=== PATIENT | female | born 1995 | race American Indian/Alaskan Native ===

== ENCOUNTER 2017-03-03 00:27 | Emergency (ER) | payer SELFPAY ==
[2017-03-03 01:14] LABS: Bacteria,Urine 1+ /HPF (Negative); Bilirubin,Urine NEG (Negative); Blood,Urine NEG (Negative); Ketones,Urine NEG (Negative); Leukocyte Esterase,Urine TR (Negative); Mucus,Urine FEW /HPF; Nitrite,Urine NEG (Negative); Protein,Urine <15 mg/dL mg/dL (Negative); Urobilinogen,Urine < 2.0 mg/dL (<2.0)
[2017-03-03 01:15] LABS: Basophils % (Auto) 0.3 % (0.0-1.8); Eosinophils % (Auto) 2.1 % (0.0-4.3); Hematocrit 39.1 % (30.3-42.9); Hemoglobin 12.5 gm/dl (10.1-14.3); Mean Corpuscular HGB Conc 32 % (30-34); Mean Corpuscular Volume 70 fl (79-97); Platelet Count 245 K/mm3 (140-440); Red Blood Count 5.58 M/mm3 (3.65-5.03); Red Cell Distribution Width 13.7 % (13.2-15.2); White Blood Count 8.1 K/mm3 (4.5-11.0)
[2017-03-03 01:16] LABS: Mean Corpuscular Hemoglobin 22 pg (28-32)
[2017-03-03 01:34] LABS: Alanine Aminotransferase 16 units/L (7-56); Albumin/Globulin Ratio 1.1 %; Alkaline Phosphatase 131 units/L (35-129); Anion Gap 19 mmol/L; BUN/Creatinine Ratio 21.66; Blood Urea Nitrogen 13 mg/dL (7-17); Calcium 9.2 mg/dL (8.4-10.2); Carbon Dioxide 22 mmol/L (22-30); Chloride 101.2 mmol/L (98-107); Glucose 84 mg/dL (65-100); Lipase 20 units/L (13-60); Potassium 4.1 mmol/L (3.6-5.0); Sodium 138 mmol/L (137-145); Total Protein 7.6 g/dL (6.3-8.2)
[2017-03-03 02:46] VITALS: BP 127/73
--- NOTE | 2017-03-03 03:10 | Emergency Department Report ---
HPI - General Chief Complaint: Abdominal Pain Time Seen by Provider: 03/03/17 02:58 - HPI HPI: Room 19 The patient is a 21-year-old female presenting with a chief complaint of vaginal bleeding after intercourse. Patient states for 1 month she has noticed vaginal bleeding/spotting last between one to 2 days after having sexual intercourse. The patient states this evening at 23:30 she also developed central pelvic pain described as cramping in nature. Patient denies vaginal discharge. Patient denies unexplained weight loss or fever. Patient denies dysuria. The patient states her last cycle occurred 02/11/2017 Location: Pelvis Duration: Intermittent times 1 month Quality: Cramping, spotting Severity: Moderate Modifying factors: [see above] Context: [see above] Mode of transportation: Unknown ED Past Medical Hx - Past Medical History Previous Medical History?: No - Surgical History Past Surgical History?: No - Family History Family history: no significant - Social History Smoking Status: Never Smoker Substance Use Type: None - Medications Home Medications: Home Medications Medication Instructions Recorded Confirmed Last Taken Type traMADol [Ultram] 50 mg PO Q6HR PRN #14 tablet 03/03/17 Unknown Rx ED Review of Systems ROS: Stated complaint: ABD PAIN Other details as noted in HPI Comment: All other systems reviewed and negative Constitutional: denies: chills, fever Eyes: denies: eye pain, eye discharge, vision change ENT: denies: ear pain, throat pain Respiratory: denies: cough, shortness of breath, wheezing Cardiovascular: denies: chest pain, palpitations Endocrine: no symptoms reported Gastrointestinal: abdominal pain. denies: nausea, diarrhea Genitourinary: abnormal menses Musculoskeletal: denies: back pain, joint swelling, arthralgia Skin: denies: rash, lesions Neurological: denies: headache, weakness, paresthesias Psychiatric: denies: anxiety, depression Hematological/Lymphatic: denies: easy bleeding, easy bruising Physical Exam - Physical Exam Vital Signs: Vital Signs 03/03/17 03/03/17 00:45 02:23 Temperature 98.3 F Pulse Rate 99 H 94 H Respiratory 14 16 Rate Blood Pressure 119/65 127/73 [Right] O2 Sat by Pulse 99 98 Oximetry Physical Exam: GENERAL: The patient is well-developed well-nourished female lying on stretcher not appearing to be in acute distress. [] HEENT: Normocephalic. Atraumatic. Extraocular motions are intact. Patient has moist mucous membranes. NECK: Supple. Trachea midline CHEST/LUNGS: Clear to auscultation. There is no respiratory distress noted. HEART/CARDIOVASCULAR: Regular. There is no tachycardia. There is no gallop rub or murmur. ABDOMEN: Abdomen is soft, with mild suprapubic discomfort to palpation. No tenderness to palpation elsewhere. Patient has normal bowel sounds. There is no abdominal distention. SKIN: There is no rash. There is no edema. There is no diaphoresis. NEURO: The patient is awake, alert, and oriented. The patient is cooperative. The patient has normal speech MUSCULOSKELETAL: There is no evidence of acute injury. PELVIC: Friable appearing cervix with irritated tissue and white plaque present in approximately 6 o'clock position. Scant white vaginal discharge ED Course Vital Signs 03/03/17 03/03/17 00:45 02:23 Temperature 98.3 F Pulse Rate 99 H 94 H Respiratory 14 16 Rate Blood Pressure 119/65 127/73 [Right] O2 Sat by Pulse 99 98 Oximetry ED Medical Decision Making - Lab Data Result diagrams: 03/03/17 00:55 03/03/17 00:55 Laboratory Tests 03/03/17 03/03/17 03/03/17 00:55 00:55 00:55 WBC 8.1 RBC 5.58 H Hgb 12.5 Hct 39.1 MCV 70 L MCH 22 L MCHC 32 RDW 13.7 Plt Count 245 Lymph % (Auto) 45.7 H [place] % (Auto) 7.5 H Eos % (Auto) 2.1 Baso % (Auto) 0.3 Lymph # 3.7 [place] # 0.6 Eos # 0.2 Baso # 0.0 Seg Neutrophils % 44.4 Seg Neutrophils # 3.6 Sodium 138 Potassium 4.1 Chloride 101.2 Carbon Dioxide 22 Anion Gap 19 BUN 13 Creatinine 0.6 L Estimated GFR > 60 BUN/Creatinine Ratio 21.66 Glucose 84 Calcium 9.2 Total Bilirubin 0.60 AST 20 ALT 16 Alkaline Phosphatase 131 H Total Protein 7.6 Albumin 4.0 Albumin/Globulin Ratio 1.1 Lipase 20 HCG, Qual Urine Color Yellow Urine Turbidity Clear Urine pH 5.0 Ur Specific [place] 1.025 Urine Protein <15 mg/dl Urine Glucose (UA) Neg Urine Ketones Neg Urine Blood Neg Urine Nitrite Neg Urine Bilirubin Neg Urine Urobilinogen < 2.0 Ur Leukocyte Esterase Tr Urine WBC (Auto) 1.0 Urine RBC (Auto) 2.0 U Epithel Cells (Auto) 2.0 Urine Bacteria (Auto) 1+ Urine Mucus Few 03/03/17 00:55 WBC RBC Hgb Hct MCV MCH MCHC RDW Plt Count Lymph % (Auto) [place] % (Auto) Eos % (Auto) Baso % (Auto) Lymph # [place] # Eos # Baso # Seg Neutrophils % Seg Neutrophils # Sodium Potassium Chloride Carbon Dioxide Anion Gap BUN Creatinine Estimated GFR BUN/Creatinine Ratio Glucose Calcium Total Bilirubin AST ALT Alkaline Phosphatase Total Protein Albumin Albumin/Globulin Ratio Lipase HCG, Qual Negative Urine Color Urine Turbidity Urine pH Ur Specific [place] Urine Protein Urine Glucose (UA) Urine Ketones Urine Blood Urine Nitrite Urine Bilirubin Urine Urobilinogen Ur Leukocyte Esterase Urine WBC (Auto) Urine RBC (Auto) U Epithel Cells (Auto) Urine Bacteria (Auto) Urine Mucus Wet prep-no clue cells, yeast or Trichomonas seen - Radiology Data Radiology results: report reviewed (pelvic ultrasound), image reviewed (pelvic ultrasound) Pelvic ultrasound (read by radiologist)-complex cystic region in the right ovary adnexal area measures 3.8 x 2.3 x 3 cm. There is moderate fluid in the lower pelvis. Hemorrhagic cyst in this region as possible. The uterus is retroverted. The echogenicity is normal. The left ovary has a normal size and appearance. - Medical Decision Making The importance of prompt follow-up with [facility] given cervical lesion/findings will stress to the patient. I expressed my concern for cervical cancer is in the differential for causes of her presentation. Patient verbalized understanding her need to follow-up with food photographer promptly - Differential Diagnosis cervicitis, cervical CVA, endometriosis, endometrial CA Critical care attestation.: If time is entered above; I have spent that time in minutes in the direct care of this critically ill patient, excluding procedure time. ED Disposition Clinical Impression: Friable cervix, Cervical lesion, Bleeding after intercourse, Complex cyst of right ovary Disposition: - TO HOME OR SELFCARE Is pt being admited?: No Does the pt Need Aspirin: No Condition: Stable Instructions: Cervicitis (ED), Pap Smear (ED), Abdominal Pain (ED) Additional Instructions: Return to the emergency department immediately should you develop worsening symptoms, fever, inability to tolerate food or liquid or any other concerns. Prescriptions: traMADol [Ultram] 50 mg PO Q6HR PRN #14 tablet PRN Reason: Pain Referrals: TALYA RODRIGUEZ MD [Staff Physician] - MARLA (Dr. Mantilla is an [employer]. Please follow up with her for further evaluation) SHIVANI AGGARWAL MD [Staff Physician] - 3-5 Days (Dr. Aggarwal is a primary physician. Please follow up with him to be established as a patient) Time of Disposition: 04:27
[2017-03-03] MEDS ORDERED: ZITHROMAX PO ONE (03:50)
[2017-03-03] MEDS ORDERED: ROCEPHIN IM ONE (03:50)
[2017-03-03] MEDS ORDERED: XYLOCAINE 1% MPF 5 mL INFILTRATI ONE (03:50)
--- NOTE | 2017-03-03 04:06 | Ultrasound Report ---
FINAL REPORT PROCEDURE: US TRANSVAGINAL TECHNIQUE: Real-time transabdominal sonography in multiple planes of the pelvis was performed. The pelvic structures were not optimally visualized. Transvaginal sonography was then performed to better evaluate the structures and/or abnormalities described below with image documentation. Grayscale, color flow Doppler imaging and velocity spectral waveform analysis of the ovaries was employed (duplex imaging). CPT 30887, 56764, [place] [address]36 HISTORY: vaginal bleeding after sexual intercourse COMPARISON: No prior studies are available for comparison. FINDINGS: UTERUS Size: 8.3 x 3.9 x 6 cm. Endometrial thickness: 11 mm. Orientation: Retroverted. Cervix: Normal. Fibroids/masses: None. RIGHT Ovary: 3.2 x 2.1 x 1.6 cm. Appearance: Complex cyst on the right ovary adnexal region measures 3.8 x 2.3 x 3 centimeters. Doppler images: Normal spectral waveforms and color flow. The systolic and diastolic velocities are within normal limits. LEFT Ovary: 2.9 x 1.8 x 3.1 cm. Appearance: Normal. Doppler images: Normal spectral waveforms and color flow. The systolic and diastolic velocities are within normal limits. Pelvic fluid: Moderate fluid in the lower pelvis. Other: None. IMPRESSION: Complex cystic region in the right ovary adnexal area measures 3.8 x 2.3 x 3 centimeters. There is moderate fluid in the lower pelvis. Hemorrhagic cyst in this region is possible. The uterus is retroverted. The echogenicity is normal. The left ovary has a normal size and appearance.
--- NOTE | 2017-03-03 04:06 | Ultrasound Report ---
FINAL REPORT PROCEDURE: Pelvic ultrasound, transabdominal and transvaginal with Doppler TECHNIQUE: Real-time transabdominal sonography in multiple planes of the pelvis was performed. The pelvic structures were not optimally visualized. Transvaginal sonography was then performed to better evaluate the structures and/or abnormalities described below with image documentation. Grayscale, color flow Doppler imaging and velocity spectral waveform analysis of the ovaries was employed (duplex imaging). CPT 90211, 49063, and 06361 HISTORY: vaginal bleeding after sexual intercourse COMPARISON: No prior studies are available for comparison. FINDINGS: UTERUS Size: 8.3 x 3.9 x 6 cm. Endometrial thickness: 11 mm. Orientation: Retroverted. Cervix: Normal. Fibroids/masses: None. RIGHT Ovary: 3.2 x 2.1 x 1.6 cm. Appearance: Complex cyst on the right ovary adnexal region measures 3.8 x 2.3 x 3 centimeters. Doppler images: Normal spectral waveforms and color flow. The systolic and diastolic velocities are within normal limits. LEFT Ovary: 2.9 x 1.8 x 3.1 cm. Appearance: Normal. Doppler images: Normal spectral waveforms and color flow. The systolic and diastolic velocities are within normal limits. Pelvic fluid: Moderate fluid in the lower pelvis. Other: None. IMPRESSION: Complex cystic region in the right ovary adnexal area measures 3.8 x 2.3 x 3 centimeters. There is moderate fluid in the lower pelvis. Hemorrhagic cyst in this region is possible. The uterus is retroverted. The echogenicity is normal. The left ovary has a normal size and appearance.
== END 2017-03-03 04:43 | disposition home or self-care (01) ==
LOC: ED 00:27
DX: N83.201 Unspecified ovarian cyst, right side (principal); N88.9 Noninflammatory disorder of cervix uteri, unspecified; G54.2 Cervical root disorders, not elsewhere classified
CPT/HCPCS: 36415; 76830; 76856; 80053; 81001; 83690; 84703; 85025; 87210; 87591; 96372; 99284; J0696